=== PATIENT | male | born 1970 | race Hispanic/Latino ===

== ENCOUNTER 2019-07-16 23:57 | Emergency (ER) | payer OTHER ==
[2019-07-17] MEDS ORDERED: SODIUM CHLORIDE 0.9% 1000ML 1,000 ML IV ONE ×2 (00:53→02:30)
[2019-07-17] MEDS ORDERED: KETOROLAC TROMETHAMINE 30MG/ML ONE (00:53)
[2019-07-17] MEDS ORDERED: ONDANSETRON HCL 4 MG/2 ML VIAL ONE (00:53)
[2019-07-17 01:19] LABS: BASOPHILS % (AUTO) 0.6 % (0.0-5.0); EOSINOPHILS % (AUTO) 1.2 % (0.0-8.0); HEMATOCRIT 43.7 % (42-54); LYMPHOCYTES % (AUTO) 34.8 % (21.0-51.0); MEAN CORPUSCULAR HEMOGLOBIN 33.3 pg (27.0-33.0); MEAN CORPUSCULAR HGB CONC 35.7 g/dL (32.0-36.0); MEAN CORPUSCULAR VOLUME 93.2 fL (79-99); MONOCYTES % (AUTO) 5.1 % (3.0-13.0); NEUTROPHILS % (AUTO) 58.3 % (40.0-77.0); PLATELET COUNT (AUTO) 256 K/uL (130-400); RED BLOOD CELL COUNT(AUTO) 4.68 MIL/uL (4.50-6.20); RED CELL DISTRIBUTION WIDTH 15.2 % (11.0-15.5); WHITE BLOOD COUNT (AUTO) 7.7 K/uL (4.8-10.8)
[2019-07-17 01:20] LABS: APPEARANCE,URINE Clear (CLEAR); BILIRUBIN,URINE Negative (NEGATIVE); COLOR,URINE Dark Yellow (YELLOW); GLUCOSE, URINE (UA) Negative (NEGATIVE); KETONES,URINE Trace mg/dL (NEGATIVE); LEUKOCYTE ESTERASE ,URINE Trace (NEGATIVE); NITRATE,URINE Negative (NEGATIVE); OCCULT BLOOD,URINE Moderate (NEGATIVE); PH,URINE 6.5 (5.0-8.0); PROTEIN,URINE Trace mg/dL (NEGATIVE)
[2019-07-17 01:32] LABS: INR 0.94 (0.85-1.15); PARTIAL THROMBOPLASTIN TIME 27.3 SEC (26.3-35.5); PROTHROMBIN TIME 9.9 SEC (9.6-11.6)
[2019-07-17 01:35] LABS: ALANINE AMINOTRANSFERASE 26 U/L (12-78); ALBUMIN 3.9 g/dL (3.5-5.0); ALCOHOL, BLOOD < 3 mg/dL (0-10); ASPARTATE AMINOTRANSFERASE 29 U/L (10-37); BILIRUBIN,TOTAL 0.8 mg/dL (0.2-1.0); CARBON DIOXIDE 26 mmol/L (21-32); CHLORIDE 104 mmol/L (101-111); CREATINE KINASE, TOTAL 60 U/L (21-232); CREATININE 1.9 mg/dL (0.5-1.5); GLOMERULAR FILTR. RATE CALC 40 mL/min (>60); GLUCOSE,RANDOM 123 mg/dL (70-105); LIPASE 174 U/L (114-286); SODIUM SERUM 142 mmol/L (136-145); TOTAL PROTEIN, SERUM 8.3 g/dL (6.0-8.3); UREA NITROGEN, BLOOD 5 mg/dL (7-18)
[2019-07-17 01:37] LABS: BACTERIA,URINE Few /HPF (None Seen); CALCIUM OXALATE CRYSTALS,UR Rare /LPF (None Seen); MUCUS,URINE Few LPF (None Seen); SQUAMOUS EPITHELIAL CELL,UR 0-2 /HPF (0-2); WBC,URINE 0-1 /HPF (0-1)
[2019-07-17 01:39] LABS: POTASSIUM 2.7 mmol/L (3.5-5.1)
[2019-07-17 01:39] LABS: AMPHET/METH SCREEN,URINE NEGATIVE (NEGATIVE); BARBITURATE SCREEN, URINE NEGATIVE (NEGATIVE); BENZODIAZEPINES SCREEN,URINE NEGATIVE (NEGATIVE); CANNABINOID SCREEN,URINE NEGATIVE (NEGATIVE); COCAINE SCREEN,URINE NEGATIVE (NEGATIVE); OPIATE SCREEN,URINE NEGATIVE (NEGATIVE); PHENCYCLIDINE SCREEN,URINE NEGATIVE (NEGATIVE)
[2019-07-17] MEDS ORDERED: POTASSIUM CHLORIDE 10MEQ/100ML 100 ML IV ONE (02:29)
[2019-07-17] MEDS ORDERED: POTASSIUM BICARB/CIT AC 25 MEQ TABLET.EFF ONE (02:30)
== END 2019-07-17 04:36 | disposition home or self-care (01) ==
LOC: EDH 23:57
DX: E87.6 Hypokalemia (principal); E86.9 Volume depletion, unspecified; R19.7 Diarrhea, unspecified; R10.9 Unspecified abdominal pain; R11.2 Nausea with vomiting, unspecified; F41.9 Anxiety disorder, unspecified; E11.9 Type 2 diabetes mellitus without complications; E78.00 Pure hypercholesterolemia, unspecified; F32.9 Major depressive disorder, single episode, unspecified
CPT/HCPCS: 36415; 74176; 80053; 80305; 81001; 82550; 83605; 83690; 84484; 85025; 85610; 85730; 96361; 96365; 96366; 96375 ×2; 99285; G0480; J1885; J2405; J7030 ×2

== ENCOUNTER 2019-07-25 13:33 | Inpatient (IN) | payer OTHER ==
[~2019-07-25] VITALS: Ht 180.3 cm; Wt 77.6 kg
[2019-07-25] MEDS ORDERED: METOCLOPRAMIDE 10 MG/2 ML VIAL ONE (13:57)
[2019-07-25] MEDS ORDERED: SODIUM CHLORIDE 0.9% 1000ML 1,000 ML IV ONE ×3 (13:58→17:52)
[2019-07-25 14:08] LABS: BASOPHILS % (AUTO) 0.5 % (0.0-5.0); EOSINOPHILS % (AUTO) 0.8 % (0.0-8.0); HEMATOCRIT 44.4 % (42-54); LYMPHOCYTES % (AUTO) 27.3 % (21.0-51.0); MEAN CORPUSCULAR HEMOGLOBIN 33.5 pg (27.0-33.0); MEAN CORPUSCULAR HGB CONC 35.2 g/dL (32.0-36.0); MEAN CORPUSCULAR VOLUME 95.1 fL (79-99); NEUTROPHILS % (AUTO) 66.4 % (40.0-77.0); NUCLEATED RED BLOOD CELLS 0.1 % (0.0-0.19); PLATELET COUNT (AUTO) 261 K/uL (130-400); RED BLOOD CELL COUNT(AUTO) 4.67 MIL/uL (4.50-6.20); RED CELL DISTRIBUTION WIDTH 15.4 % (11.0-15.5); WHITE BLOOD COUNT (AUTO) 8.5 K/uL (4.8-10.8)
[2019-07-25 14:17] LABS: INR 0.95 (0.85-1.15); PARTIAL THROMBOPLASTIN TIME 25.9 SEC (26.3-35.5)
[2019-07-25 14:21] LABS: ALBUMIN 3.7 g/dL (3.5-5.0); BILIRUBIN,TOTAL 1.5 mg/dL (0.2-1.0); TOTAL PROTEIN, SERUM 7.7 g/dL (6.0-8.3)
[2019-07-25 14:34] LABS: CREATININE 1.7 mg/dL (0.5-1.5); POTASSIUM 3.6 mmol/L (3.5-5.1)
[2019-07-25] MEDS ORDERED: MORPHINE SULFATE 4 MG/1ML SYG ONE (14:57)
[2019-07-25] MEDS: SODIUM CHLORIDE 0.9% 1000ML 1,000 ML IV SCH (17:20)
[2019-07-25] MEDS ORDERED: DiphenhydrAMINE HCL 50 MG/ML VIAL IV PRN (17:30)
[2019-07-25] MEDS ORDERED: DIPHENHYDRAMINE HCL 25 MG CAPSULE PO PRN (17:30)
[2019-07-25] MEDS ORDERED: ACETAMINOPHEN 325 MG TAB PO PRN ×2 (17:30)
[2019-07-25] MEDS ORDERED: LACTULOSE 20 GM/30 ML UDCUP PO PRN (17:30)
[2019-07-25] MEDS ORDERED: MAG HYDROX/AL HYDROX/SIMETH ES 30 ML SUSP UDCUP PO PRN (17:30)
[2019-07-25] MEDS ORDERED: GUAIFENESIN-DM 200/20 MG 10 ML PO PRN (17:30)
[2019-07-25] MEDS ORDERED: HYDRALAZINE HCL 20 MG/ML VIAL IV PRN (17:30)
[2019-07-25] MEDS ORDERED: NITROGLYCERIN 0.4 MG SL TAB SL PRN (17:30)
[2019-07-25 18:39] LABS: APPEARANCE,URINE Clear (CLEAR); BILIRUBIN,URINE Small (NEGATIVE); COLOR,URINE Dark Yellow (YELLOW); GLUCOSE, URINE (UA) Negative (NEGATIVE); KETONES,URINE 40 mg/dL (NEGATIVE); LEUKOCYTE ESTERASE ,URINE Trace (NEGATIVE); NITRATE,URINE Negative (NEGATIVE); OCCULT BLOOD,URINE Nonhemolyzed Trace (NEGATIVE); PH,URINE 6.5 (5.0-8.0); PROTEIN,URINE POS 1+ mg/dL (NEGATIVE)
[2019-07-25 18:47] LABS: AMPHET/METH SCREEN,URINE NEGATIVE (NEGATIVE); BARBITURATE SCREEN, URINE NEGATIVE (NEGATIVE); BENZODIAZEPINES SCREEN,URINE NEGATIVE (NEGATIVE); CANNABINOID SCREEN,URINE NEGATIVE (NEGATIVE); COCAINE SCREEN,URINE NEGATIVE (NEGATIVE); OPIATE SCREEN,URINE POSITIVE (NEGATIVE); PHENCYCLIDINE SCREEN,URINE NEGATIVE (NEGATIVE)
[2019-07-25 19:02] LABS: BACTERIA,URINE Few /HPF (None Seen)
[2019-07-25 19:03] LABS: MUCUS,URINE Few LPF (None Seen)
[2019-07-25 21:00] VITALS: BP 163/67
--- NOTE | 2019-07-25 21:30 | NUR ---
Admission Assessment Received pt from ED per wheelchair with no family around, NS at 100cc/hr infusing well, routine admission assessment done, plan of care discuss, pt claimed has been sick for more than a week had gone [facility] was send home with instructions to keep his diet CLD, stated his mother invited him to eat at [employer], thereafter abdominal discomfort started & prior to admission stated became severe. Pt also confirm he has problem with kidney stones & in 2017 Dr. Watson did laser treatment, then he also as claimed was able to pass out stones in the pass. Re his home medication, noted one medication noted belong to her mother as claimed but per pt stated he takes it as it helps with his depression/anxiety = Escitalopram 10mg takes it daily in AM. Pt advise he can't be taking other person's medication unless prescribe by a physician. Per pt claimed since he does not have coverage, just recently applied for medicaid, his mother shares her medication with him. Pt stated he sees a physician from [facility] here in [place] but can't remember the name. Pt currently denies discomfort. Pt also stated someone from this hospital has called him yesterday to assist him with financial coverage for his ED visit. I made him aware that might be [facility] & they won't be her this weekend for sure on Saturday a business services sales representative will see him. Pt reminded only on clear liquid diet for now.
[2019-07-25] MEDS ORDERED: METF500S7 PO (22:43)
[2019-07-25] MEDS ORDERED: ESCI10TA54 PO (22:43)
[2019-07-25] MEDS: FAMOTIDINE 20MG TAB 20 MG TAB PO SCH (22:50)
[2019-07-25 23:54] VITALS: BP 143/85
[2019-07-26 03:30] VITALS: BP 125/71
[2019-07-26 05:24] LABS: BASOPHILS % (AUTO) 0.5 % (0.0-5.0); EOSINOPHILS % (AUTO) 3.2 % (0.0-8.0); HEMATOCRIT 35.9 % (42-54); MEAN CORPUSCULAR HEMOGLOBIN 33.3 pg (27.0-33.0); MEAN CORPUSCULAR VOLUME 92.4 fL (79-99); MONOCYTES % (AUTO) 6.9 % (3.0-13.0); NEUTROPHILS % (AUTO) 53.4 % (40.0-77.0); NUCLEATED RED BLOOD CELLS 0.1 % (0.0-0.19); PLATELET COUNT (AUTO) 188 K/uL (130-400); RED BLOOD CELL COUNT(AUTO) 3.89 MIL/uL (4.50-6.20); RED CELL DISTRIBUTION WIDTH 15.2 % (11.0-15.5); WHITE BLOOD COUNT (AUTO) 5.5 K/uL (4.8-10.8)
[2019-07-26 05:36] LABS: CREATININE 1.3 mg/dL (0.5-1.5)
[2019-07-26 05:55] LABS: POTASSIUM 2.8 mmol/L (3.5-5.1)
[2019-07-26] MEDS: SODIUM CHLORIDE 0.9% 1000ML 1,000 ML IV SCH ×3 (06:05→22:55)
[2019-07-26] MEDS ORDERED: GLUCAGON 1MG KIT 1 MG ML IM PRN (06:15)
[2019-07-26] MEDS ORDERED: DEXTROSE 50%-WATER 50 ML DISP.SYRIN IV PRN (06:15)
[2019-07-26] MEDS: INSULIN HUMULIN R 100 UNIT/ML 3ML SQ SCH ×4 (06:26→21:00)
[2019-07-26] MEDS: LIDOCAINE HCL-MPF 1% 2ML VIAL IV PRN ×2 (06:27→23:49)
[2019-07-26] MEDS: POTASSIUM CHLORIDE 20MEQ/100ML 100 ML IV PRN ×2 (06:27→23:49)
[2019-07-26] MEDS: POTASSIUM CHLORIDE 20 MEQ ERTAB PO PRN ×4 (06:28→21:30)
[2019-07-26 08:00] VITALS: BP 136/84
[2019-07-26 11:00] VITALS: BP 135/80
[2019-07-26] MEDS: FAMOTIDINE 20MG TAB 20 MG TAB PO SCH ×2 (11:15→20:41)
[2019-07-26] MEDS: ENOXAPARIN SODIUM 30 MG/0.3 ML SQ SCH (11:17)
[2019-07-26 16:00] VITALS: BP 141/89
--- NOTE | 2019-07-26 17:14 | NUR ---
cm note met with patient and states resides at home alone, independent with adls/ambulation/self care. no dme. no provider. shaq is back home. has applied with [facility] for possible [facility] coverage. Addendum: 07/26/19 at 1715 by JAH CHADWICK CM Amended: Links added.
[2019-07-26 19:30] VITALS: BP 141/82
[2019-07-26] MEDS: ONDANSETRON HCL 4 MG/2 ML VIAL IV PRN (20:41)
--- NOTE | 2019-07-26 20:41 | NUR ---
MEDS SHIFT ASSESSMENT DONE, PLEASE REFER TO CHART. PT COMPLAINTS OF NAUSEA, ZOFRAN IV GIVEN. POTASSIUM RE-CHECK=3.4, STARTED PO COVERAGE. DUE MEDS ADMINISTERED, TOLERATED WELL. KEPT RESTED AND COMFORTABLE. WILL RE-ASSESS PT. Addendum: 07/26/19 at 2333 by LEONIDAS CRAIG RN RN Amended: Links added.
--- NOTE | 2019-07-26 22:00 | NUR ---
N/V PT VERBALIZES OF VOMITING PO POTASSIUM GIVEN EARLIER. REFUSING TO TAKE SECOND PO DOSE.
[2019-07-26 23:39] VITALS: BP 139/83
[2019-07-27] MEDS: SODIUM CHLORIDE 0.9% 1000ML 1,000 ML IV SCH ×3 (01:53→13:44)
--- NOTE | 2019-07-27 02:00 | NUR ---
ROUNDS PT STILL AWAKE, WATCHING TV. NO DISTRESS NOTED. NO CONCERNS VERBALIZED. KEPT RESTED AND COMFORTABLE IN BED. CALL LIGHT WITHIN REACH. WILL MONITOR PT.
[2019-07-27 04:00] VITALS: BP 130/75
[2019-07-27 05:56] LABS: BASOPHILS % (AUTO) 0.4 % (0.0-5.0); EOSINOPHILS % (AUTO) 4.9 % (0.0-8.0); HEMATOCRIT 37.7 % (42-54); LYMPHOCYTES % (AUTO) 41.1 % (21.0-51.0); MEAN CORPUSCULAR HEMOGLOBIN 33.8 pg (27.0-33.0); MEAN CORPUSCULAR HGB CONC 36.6 g/dL (32.0-36.0); MEAN CORPUSCULAR VOLUME 92.4 fL (79-99); MONOCYTES % (AUTO) 8.1 % (3.0-13.0); NEUTROPHILS % (AUTO) 45.5 % (40.0-77.0); NUCLEATED RED BLOOD CELLS 0.1 % (0.0-0.19); PLATELET COUNT (AUTO) 162 K/uL (130-400); RED BLOOD CELL COUNT(AUTO) 4.08 MIL/uL (4.50-6.20); RED CELL DISTRIBUTION WIDTH 15.6 % (11.0-15.5); WHITE BLOOD COUNT (AUTO) 3.9 K/uL (4.8-10.8)
[2019-07-27 06:08] LABS: CREATININE 1.1 mg/dL (0.5-1.5); POTASSIUM 3.5 mmol/L (3.5-5.1)
[2019-07-27] MEDS: POTASSIUM CHLORIDE 10% ELIXIR 20 MEQ/15 ML UDCUP PO PRN ×2 (06:35→13:45)
--- NOTE | 2019-07-27 06:35 | NUR ---
MEDS PT'S REPEAT KCL=3.5, STARTED PO COVERAGE WITH KCL ELIXER GIVEN WITH [employer]UICE. INSULIN COVERAGE ADMINISTERED WELL. PT TOLERATED MEDS WELL. ENDORSING TO AM SHIFT FOR MORE CARE AND MANAGEMENT.
[2019-07-27] MEDS: INSULIN HUMULIN R 100 UNIT/ML 3ML SQ SCH ×4 (06:40→21:19)
[2019-07-27 08:00] VITALS: BP 133/96
[2019-07-27] MEDS: ENOXAPARIN SODIUM 30 MG/0.3 ML SQ SCH (08:12)
[2019-07-27] MEDS: FAMOTIDINE 20MG TAB 20 MG TAB PO SCH ×2 (08:22→21:16)
[2019-07-27 12:00] VITALS: BP 144/96
[2019-07-27] MEDS: ONDANSETRON HCL 4 MG/2 ML VIAL IV PRN (13:55)
[2019-07-27 16:00] VITALS: BP 141/91
[2019-07-27 19:15] VITALS: BP 135/91
--- NOTE | 2019-07-27 21:15 | NUR ---
MEDS SHIFT ASSESSMENT DONE, PLEASE REFER TO CHART. DUE MEDS ADMINISTERED, TOLERATED WELL. KEPT RESTED AND COMFORTABLE. CALL LIGHT WITHIN REACH. INSTRUCTED TO BE NPO FOR AND SONO AND HIDA IN AM. PT VERBALIZES UNDERSTANDING.
[2019-07-27 23:35] VITALS: BP 132/89
[2019-07-28] MEDS: SODIUM CHLORIDE 0.9% 1000ML 1,000 ML IV SCH ×3 (00:33→20:33)
--- NOTE | 2019-07-28 00:33 | NUR ---
IVF PT RESTING WELL IN BED. NO CONCERNS VERBALIZED. NO DISTRESS NOTED. NEW IVF BAG HUNG. KEPT RESTED AND COMFORTABLE. WILL MONITOR PT.
--- NOTE | 2019-07-28 01:38 | NUR ---
MEDS SHIFT ASSESSMENT DONE, PLEASE REFER TO CHART. DUE MEDS ADMINISTERED, TOLERATED WELL. NO DISTRESS NOTED. NO COMPLAINTS VERBALIZED. KEPT RESTED AND COMFORTABLE. CALL LIGHT WITHIN REACH. Addendum: 07/28/19 at 0139 by LEONIDAS CRAIG RN RN Amended: Links added. Addendum: 07/28/19 at 0140 by LEONIDAS CRAIG RN RN TIME ENTRY ERROR
[2019-07-28 03:33] VITALS: BP 132/85
[2019-07-28 04:52] LABS: HEMATOCRIT 38.4 % (42-54); MEAN CORPUSCULAR HEMOGLOBIN 33.3 pg (27.0-33.0); MEAN CORPUSCULAR HGB CONC 35.9 g/dL (32.0-36.0); MEAN CORPUSCULAR VOLUME 92.8 fL (79-99); NUCLEATED RED BLOOD CELLS 0.1 % (0.0-0.19); PLATELET COUNT (AUTO) 155 K/uL (130-400); RED BLOOD CELL COUNT(AUTO) 4.14 MIL/uL (4.50-6.20); RED CELL DISTRIBUTION WIDTH 15.2 % (11.0-15.5)
[2019-07-28 05:00] LABS: CREATININE 0.9 mg/dL (0.5-1.5); POTASSIUM 3.5 mmol/L (3.5-5.1)
[2019-07-28] MEDS: POTASSIUM CHLORIDE 20MEQ/100ML 100 ML IV PRN (05:26)
[2019-07-28] MEDS: LIDOCAINE HCL-MPF 1% 2ML VIAL IV PRN (05:26)
--- NOTE | 2019-07-28 05:26 | NUR ---
KCL PT VERBALIZES THAT HE IS HUNGRY AND WANTED TO EAT. EXPLAINED THAT IF HE WILL EAT AT THIS TIME, HIDA SCAN WILL NOT BE DONE. PT WAS ABOUT TO SIGN THE REFUSAL FORM BUT CHANGED HIS MIND. IV POTASSIUM INFUSION STARTED FOR KCL=3.5. KEPT RESTED IN BED. KEPT NPO. FOR MORE CARE AND MANAGEMENT.
[2019-07-28] MEDS: INSULIN HUMULIN R 100 UNIT/ML 3ML SQ SCH ×4 (06:26→20:33)
[2019-07-28 07:37] LABS: BAND NEUTROPHILS % (MANUAL) 1 % (0-2); EOSINOPHILS % (MANUAL) 3 % (1-6); LYMPHOCYTES % (MANUAL) 31 % (22-44); MAN.DIFF COMMENT-IMPRESSION MANUAL DIFFERENTIAL; MONOCYTES % (MANUAL) 10 % (2-9); PLATELET MORPHOLOGY COMMENT ADEQUATE; SEGMENTED NEUTROPHILS % 55 % (40-70)
[2019-07-28 07:55] VITALS: BP 143/101
[2019-07-28] MEDS: FAMOTIDINE 20MG TAB 20 MG TAB PO SCH ×2 (08:31→20:24)
[2019-07-28] MEDS: ENOXAPARIN SODIUM 30 MG/0.3 ML SQ SCH (09:00)
[2019-07-28 12:00] VITALS: BP 131/82
[2019-07-28 13:53] LABS: BASOPHILS % (AUTO) 0.9 % (0.0-5.0); EOSINOPHILS % (AUTO) 4.5 % (0.0-8.0); HEMATOCRIT 40.5 % (42-54); LYMPHOCYTES % (AUTO) 23.7 % (21.0-51.0); MEAN CORPUSCULAR HEMOGLOBIN 33.3 pg (27.0-33.0); MEAN CORPUSCULAR HGB CONC 35.7 g/dL (32.0-36.0); MEAN CORPUSCULAR VOLUME 93.4 fL (79-99); MONOCYTES % (AUTO) 8.3 % (3.0-13.0); NEUTROPHILS % (AUTO) 62.6 % (40.0-77.0); PLATELET COUNT (AUTO) 179 K/uL (130-400); RED BLOOD CELL COUNT(AUTO) 4.34 MIL/uL (4.50-6.20); RED CELL DISTRIBUTION WIDTH 15.5 % (11.0-15.5); WHITE BLOOD COUNT (AUTO) 4.1 K/uL (4.8-10.8)
[2019-07-28 16:00] VITALS: BP 114/85
[2019-07-28 19:51] VITALS: BP 146/100
[2019-07-28] MEDS ORDERED: HYDROMORPHONE 1 MG/1 ML AMP IVP PRN (22:30)
[2019-07-28] MEDS: ONDANSETRON HCL 4 MG/2 ML VIAL IV PRN (22:33)
[2019-07-28] MEDS ORDERED: PHARMACY COMMUNICATION MISC SCH (22:40)
[2019-07-28 23:19] VITALS: BP 138/102
[2019-07-29] MEDS: SODIUM CHLORIDE 0.9% 1000ML 1,000 ML IV SCH ×2 (00:24→08:24)
[2019-07-29 03:49] VITALS: BP 123/92
[2019-07-29 05:33] LABS: POTASSIUM 3.7 mmol/L (3.5-5.1)
[2019-07-29] MEDS: INSULIN HUMULIN R 100 UNIT/ML 3ML SQ SCH ×2 (06:22→11:30)
[2019-07-29 07:27] VITALS: BP 131/92
[2019-07-29] MEDS ORDERED: PHARMACY COMMUNICATION MISC SCH (07:30)
[2019-07-29 08:12] LABS: HEPATITIS A ANTIBODY IGM Negative (Negative); HEPATITIS B CORE IGM Negative (Negative); HEPATITIS Bs ANTIGEN SCREEN P Negative (Negative)
[2019-07-29] MEDS: FAMOTIDINE 20MG TAB 20 MG TAB PO SCH (08:14)
[2019-07-29] MEDS: ENOXAPARIN SODIUM 30 MG/0.3 ML SQ SCH (08:16)
[2019-07-29 11:24] VITALS: BP 122/78
[2019-07-29] MEDS ORDERED: ONDA4TAB4 PO (11:30)
[2019-07-29] MEDS ORDERED: IBUP-2077 PO (11:30)
--- NOTE | 2019-07-29 15:00 | NUR ---
CONVERSATION WITH PATIENT PATIENT STATES DOES NOT WANT TO GO HOME. CM THERE TO GIVE MEDICATION COUPONS. STATES THAT IF ANYTHING HAPPENED TO HIM HE WILL LORRI. CHART REVIEWED, NOTED IMIAGING STUDIES, ADVISED PT THAT HIS CHRONIC PANCREATITIS IS NOT DANGEROUS, JUST PAINFUL. ASKED IF ANYONE HAD TOLD HIM HE HAD LIVER PROBLEMS, HE STATES YES ADVISED HIM THAT IF HE LOOKS AFTER HIMSELF , EATS WELL, AND DOES NOT DRINK, , HE IS NOT 'IN DANGER' AT THE PRESENT MOMENT- PT HAS MANY MANY TATTOOS, ADMITS TO INCARCERATION- ADVISED HIM THERE ARE MANY ILLNESS THAT CAN OCCUR WHEN A PERSON PUTS A NEEDLES UNDER THE SKIN. ITS A RISKY THING TO DO, BUT WE DO NOT HAVE EVIDENCE AT THIS TIME THAT YOU ARE IN DANGER FROM THAT PAST BEHAVIOR. PT VISIBLY CALMER, STATES WANTS TO GO HOME, EVERYTHING WILL BE FINE, JUST NEEDS A DIET FOR THE CHRONIC PANCREATITIS. Addendum: 07/29/19 at 1820 by DANIEL DARNELL RN Amended: Links added.
--- NOTE | 2019-07-31 08:00 | NUR ---
Pt awake, alert, oriented x3. Ambulates without difficulty. Has brown discoloration to bilateral lower legs.
--- NOTE | 2019-07-31 11:30 | NUR ---
internet sales manager Michael informed of case-management evaluation for low cost medication programs
== END 2019-07-29 15:35 | disposition home or self-care (01) | DRG 439 ==
LOC: EDH 13:33 → EDHIP 13:34 → 4BH 20:09
PROVIDERS: ADMIT Family Medicine; ATTEND Family Medicine
DX: K85.90 Acute pancreatitis without necrosis or infection, unspecified (principal); N17.9 Acute kidney failure, unspecified; B19.20 Unspecified viral hepatitis C without hepatic coma; N20.0 Calculus of kidney; K86.1 Other chronic pancreatitis; F32.9 Major depressive disorder, single episode, unspecified; F41.9 Anxiety disorder, unspecified; E11.9 Type 2 diabetes mellitus without complications; E78.00 Pure hypercholesterolemia, unspecified; E86.0 Dehydration; E87.6 Hypokalemia; F17.210 Nicotine dependence, cigarettes, uncomplicated; I10 Essential (primary) hypertension; K74.60 Unspecified cirrhosis of liver; K82.8 Other specified diseases of gallbladder; Z87.442 Personal history of urinary calculi; Z23 Encounter for immunization; Z88.5 Allergy status to narcotic agent
CPT/HCPCS: 36415; 74176; 76705; 76770; 78227; 80048; 80053; 80074; 80305; 81001; 82948; 83605; 83690; 84132; 85025; 85610; 85730; A9537; G0378; J1170; J1650; J1815; J2270; J2405; J2765; J3480; J3490; J7030

== ENCOUNTER 2019-08-02 22:29 | Inpatient (IN) | payer OTHER ==
[~2019-08-02] VITALS: Ht 177.8 cm; Wt 76.2 kg
[~2019-08-02 22:29] MED LIST: ESCI10TA54 PO; IBUP-2077 PO; METF500S7 PO; ONDA4TAB4 PO
[2019-08-02 23:03] LABS: BASOPHILS % (AUTO) 0.6 % (0.0-5.0); EOSINOPHILS % (AUTO) 1.7 % (0.0-8.0); HEMATOCRIT 45.2 % (42-54); LYMPHOCYTES % (AUTO) 39.4 % (21.0-51.0); MEAN CORPUSCULAR HEMOGLOBIN 33.7 pg (27.0-33.0); MEAN CORPUSCULAR VOLUME 96.2 fL (79-99); MONOCYTES % (AUTO) 6.8 % (3.0-13.0); NEUTROPHILS % (AUTO) 51.5 % (40.0-77.0); PLATELET COUNT (AUTO) 272 K/uL (130-400); RED BLOOD CELL COUNT(AUTO) 4.69 MIL/uL (4.50-6.20); RED CELL DISTRIBUTION WIDTH 15.5 % (11.0-15.5)
[2019-08-02 23:08] LABS: APPEARANCE,URINE Clear (CLEAR); BILIRUBIN,URINE Negative (NEGATIVE); COLOR,URINE Dark Yellow (YELLOW); GLUCOSE, URINE (UA) Negative (NEGATIVE); KETONES,URINE Trace mg/dL (NEGATIVE); LEUKOCYTE ESTERASE ,URINE Trace (NEGATIVE); NITRATE,URINE Negative (NEGATIVE); OCCULT BLOOD,URINE Large (NEGATIVE); PROTEIN,URINE POS 1+ mg/dL (NEGATIVE)
[2019-08-02 23:12] LABS: AMPHET/METH SCREEN,URINE NEGATIVE (NEGATIVE); BARBITURATE SCREEN, URINE NEGATIVE (NEGATIVE); BENZODIAZEPINES SCREEN,URINE NEGATIVE (NEGATIVE); CANNABINOID SCREEN,URINE NEGATIVE (NEGATIVE); COCAINE SCREEN,URINE NEGATIVE (NEGATIVE); OPIATE SCREEN,URINE NEGATIVE (NEGATIVE); PHENCYCLIDINE SCREEN,URINE NEGATIVE (NEGATIVE)
[2019-08-02 23:15] LABS: INR 0.91 (0.85-1.15); PARTIAL THROMBOPLASTIN TIME 27.6 SEC (26.3-35.5); PROTHROMBIN TIME 9.6 SEC (9.6-11.6)
[2019-08-02 23:16] LABS: CARBON DIOXIDE 22 mmol/L (21-32); CHLORIDE 105 mmol/L (101-111); CREATININE 2.1 mg/dL (0.5-1.5); GLOMERULAR FILTR. RATE CALC 36 mL/min (>60); GLUCOSE,RANDOM 155 mg/dL (70-105); POTASSIUM 3.9 mmol/L (3.5-5.1); SODIUM SERUM 142 mmol/L (136-145); UREA NITROGEN, BLOOD 9 mg/dL (7-18)
[2019-08-02 23:20] LABS: ALANINE AMINOTRANSFERASE 36 U/L (12-78); ALBUMIN 3.8 g/dL (3.5-5.0); ALCOHOL, BLOOD < 3 mg/dL (0-10); AMYLASE 63 U/L (25-115); ASPARTATE AMINOTRANSFERASE 32 U/L (10-37); BACTERIA,URINE None Seen /HPF (None Seen); BILIRUBIN,TOTAL 0.6 mg/dL (0.2-1.0); CREATINE KINASE, TOTAL 74 U/L (21-232); LIPASE 134 U/L (114-286); MUCUS,URINE Few LPF (None Seen); SQUAMOUS EPITHELIAL CELL,UR Few /HPF (0-2); TOTAL PROTEIN, SERUM 8.2 g/dL (6.0-8.3)
[2019-08-02] MEDS ORDERED: KETOROLAC TROMETHAMINE 15MG/ML ONE (23:37)
[2019-08-02] MEDS ORDERED: SODIUM CHLORIDE 0.9% 1000ML 1,000 ML IV ONE (23:37)
[2019-08-02] MEDS ORDERED: ONDANSETRON HCL 4 MG/2 ML VIAL ONE (23:37)
[2019-08-03] MEDS ORDERED: SODIUM CHLORIDE 0.9% 50 ML IV ONE (01:43)
[2019-08-03] MEDS: SODIUM CHLORIDE 0.9% 1000ML 1,000 ML IV SCH ×2 (01:56→12:18)
[2019-08-03] MEDS ORDERED: IBUPROFEN 600 MG TABLET PO PRN (02:00)
[2019-08-03] MEDS ORDERED: ONDANSETRON HCL 4 MG/2 ML VIAL IV PRN (02:00)
[2019-08-03] MEDS ORDERED: SODIUM CHLORIDE 0.9% 1000ML 1,000 ML IV ONE (02:44)
[2019-08-03] MEDS ORDERED: CEFTRIAXONE SODIUM 1 GM ONE (02:46)
[2019-08-03 03:10] VITALS: BP_SYST 149; BP_SYST 157; BP_DIAS 67; BP_DIAS 87
--- NOTE | 2019-08-03 03:15 | NUR ---
ADMIT PT ADMITTED TO ROOM 405, AAOX3. PT STILL CLAIMS OF GENERALIZED ABDOMINAL PAINS AND LEFT FLANK PAINS. NO NAUSEA REPORTED. ADMISSION CARE DONE. ADMISSION DATA BASE COMPLETED. V/S MONITORED, STABLE. PLACED IVF OF NS FROM ER TO THE PUMP THEN REGULATED AT 100CC/HR PER ORDER. PLACED PT ON CLEAR LIQUID DIET, TOLERATED WELL. ORIENTED TO ROOM AND UNIT. IN FOR MORE CARE AND MANAGEMENT. Addendum: 08/03/19 at 0350 by LEONIDAS CRAIG RN RN Amended: Links added.
[2019-08-03] MEDS ORDERED: IBUPROFEN 600 MG TABLET ONE (04:02)
--- NOTE | 2019-08-03 05:35 | NUR ---
ROUNDS PT RESTING WELL, FAIRLY ASLEEP WITH RESPIRATIONS EVEN AND UNLABORED. NO NOTED DISTRESS. KEPT UNDISTURBED FOR NOW. CALL LIGHT WITHIN REACH. FOR MORE CARE.
[2019-08-03] MEDS ORDERED: ACETAMINOPHEN 325 MG TAB PO PRN (07:15)
[2019-08-03 07:58] VITALS: BP 136/82
[2019-08-03] MEDS: FAMOTIDINE/PF 20 MG/2 ML VIAL IV SCH (09:26)
[2019-08-03] MEDS: CITALOPRAM 20 MG TABLET PO SCH (09:26)
[2019-08-03] MEDS: ENOXAPARIN SODIUM 40 MG/0.4 ML SYRINGE SQ SCH (09:27)
[2019-08-03 11:30] VITALS: BP 139/90
--- NOTE | 2019-08-03 13:00 | NUR ---
INITIAL MET W PT KNOWN TO THIS CM FORM LAST ADMIT, LIVES ALONE, PAST INCARCERATIONS, UNEMPLOYED, KIDNEY STONES, CHRONIC PANCREATITIS,LAST ADMIT + FOR HEP C, UNSURE IF THIS WAS DISCUSSED W PATIENT; BACK AGIAN WITH KIDNEY STONE- AND HYDRONEPHROSIS,UIT WAS DX ON LAST ADMIT, DID NOT WELDER SHIELDED METAL ARC HIS MEIDCATION WILL FOLLOW. ASKE FOR DIET CONSULT FOR CHRONIC PANCREATITIS Addendum: 08/03/19 at 1715 by DANIEL DARNELL RN CM Amended: Links added.
--- NOTE | 2019-08-03 13:21 | NUR ---
CONVERSATION WITH RE: COMPLIANCE LAST CHART/NOTES REVIEWED CONVERSATION WITH PATIENT PT SENT HOME WITH ABX RX FOR UTI. STATES DID NOT FILL. REMINDED PT THAT WE SENT HIM HOME WITH A DIET FOR THE CHONRIC PANCREATITIS. STATES DID NOT FOLLOW PT WITH FLAT AFFECT, STATES IS DEPRESSED. PT WITH HEP CON LAST ADMIT, NOT SURE IF MD EXPLAINED THT TO HIM. WILL DISCUSS WITH THIS ADMITTING PHYSICIAN
[2019-08-03 16:00] VITALS: BP 142/91
[2019-08-03] MEDS ORDERED: TAMSULOSIN HCL 0.4 MG CAP.ER.24H PO SCH (18:00)
[2019-08-03 20:00] VITALS: BP 126/76
[2019-08-04] VITALS: BP 128/76
[2019-08-04] MEDS: SODIUM CHLORIDE 0.9% 1000ML 1,000 ML IV SCH ×2 (01:55→09:56)
[2019-08-04] MEDS ORDERED: CEFTRIAXONE SODIUM 1 GM IVP SCH (02:00)
[2019-08-04 04:00] VITALS: BP 142/87
[2019-08-04 04:03] LABS: EOSINOPHILS % (AUTO) 2.9 % (0.0-8.0); HEMATOCRIT 36.5 % (42-54); LYMPHOCYTES % (AUTO) 49.1 % (21.0-51.0); MEAN CORPUSCULAR HGB CONC 35.8 g/dL (32.0-36.0); MONOCYTES % (AUTO) 8.3 % (3.0-13.0); NEUTROPHILS % (AUTO) 38.7 % (40.0-77.0); NUCLEATED RED BLOOD CELLS 0.1 % (0.0-0.19); PLATELET COUNT (AUTO) 151 K/uL (130-400); RED BLOOD CELL COUNT(AUTO) 3.84 MIL/uL (4.50-6.20); RED CELL DISTRIBUTION WIDTH 15.3 % (11.0-15.5); WHITE BLOOD COUNT (AUTO) 4.4 K/uL (4.8-10.8)
[2019-08-04 04:13] LABS: CREATININE 1.5 mg/dL (0.5-1.5); POTASSIUM 4.2 mmol/L (3.5-5.1)
[2019-08-04 08:00] VITALS: BP 141/97
[2019-08-04] MEDS: CITALOPRAM 20 MG TABLET PO SCH (08:54)
[2019-08-04] MEDS: FAMOTIDINE/PF 20 MG/2 ML VIAL IV SCH (08:54)
[2019-08-04] MEDS: ENOXAPARIN SODIUM 40 MG/0.4 ML SYRINGE SQ SCH (08:58)
[2019-08-04] MEDS ORDERED: TAMSULOSIN HCL 0.4 MG CAP.ER.24H PO SCH (09:00)
--- NOTE | 2019-08-04 11:08 | NUR ---
CM Note: Pt given good Rx coupon for Flomax CM met with pt given Good Rx coupon for Flomax 0.4mg PO dailys x 30 days w/ [facility]17[facility] and [facility] $18.10. Given direction to [facility] as requested by pt. Primary nurse aware. CM to cont to follow up.
[2019-08-04 11:14] VITALS: BP 145/87
[2019-08-04 16:07] VITALS: BP 134/88
[2019-08-04] MEDS ORDERED: TAMS-1 PO (16:11)
--- NOTE | 2019-08-04 16:50 | NUR ---
DISCHARGE INSTRUCTED GIVEN TO PATIENT AND PATIENT VERBALIZED UNDERSTANDING, FOLLOW-UP APPOINTMENT MADE WITH DR TAPIA AND INFORMATION GIVEN TO PATIENT . IV REMOVED WITH CATHETER INTACT, NO QUESTIONS OR CONCERNS AT THIS TIME. PATIENT WALK TO [employer] AND LEFT WITH FAMILY FOR HOME
--- NOTE | 2019-08-04 16:51 | NUR ---
DIET EDUCATION PT IS BILINGUAL. KANDACE PROVIDED PANCREATITIS DIET EDUCATION REINFORCEMENT. KANDACE REVIEWED REFERENCE MATERIALS AND HANDOUTS WITH PT. PT WITH MULTIPLE QUESTIONS. RD ANSWERED ALL OF PT QUESTIONS. PT VERBALIZED UNDERSTANDING. KANDACE ENCOURAGED PT TO NOTIFY ADDITIONAL QUESTIONS OR CONCERNS ARISE. Addendum: 08/04/19 at [address] Amended: Links added.
[2019-08-04] MEDS ORDERED: FAMOTIDINE 20MG TAB 20 MG TAB PO SCH (21:00)
== END 2019-08-04 16:50 | disposition home or self-care (01) | DRG 690 ==
LOC: EDH 22:29 → OBSVTOIN 22:30 → EDHIP 22:30 → 4BH 08-03 02:20 → 4CH 08-03 08:06 → 4DH 08-03 08:38
PROVIDERS: ADMIT Internal Medicine; ATTEND Internal Medicine
DX: N13.6 Pyonephrosis (principal); I10 Essential (primary) hypertension; E11.9 Type 2 diabetes mellitus without complications; E78.00 Pure hypercholesterolemia, unspecified; E78.5 Hyperlipidemia, unspecified; F17.210 Nicotine dependence, cigarettes, uncomplicated; K57.90 Diverticulosis of intestine, part unspecified, without perforation or abscess without bleeding; K74.60 Unspecified cirrhosis of liver; Z82.49 Family history of ischemic heart disease and other diseases of the circulatory system; Z83.3 Family history of diabetes mellitus; Z87.442 Personal history of urinary calculi; Z91.19 Patient's noncompliance with other medical treatment and regimen; Z88.5 Allergy status to narcotic agent
CPT/HCPCS: 36415; 74018; 74176; 80048; 80053; 80305; 81001; 82150; 82550; 82948; 83690; 84484; 85025; 85610; 85730; 87088; 93005; G0378; G0480; J0696; J1650; J1885; J2405; J3490; J7030

== ENCOUNTER 2019-08-07 07:03 | Emergency (ER) | payer SELFPAY ==
[~2019-08-07 07:03] MED LIST changes: +TAMS-1 PO
[2019-08-07] MEDS ORDERED: SODIUM CHLORIDE 0.9% 1000ML 1,000 ML IV ONE ×2 (07:38→08:44)
[2019-08-07] MEDS ORDERED: ONDANSETRON HCL 4 MG/2 ML VIAL ONE (07:38)
[2019-08-07 07:57] LABS: BASOPHILS % (AUTO) 0.5 % (0.0-5.0); EOSINOPHILS % (AUTO) 2.5 % (0.0-8.0); HEMATOCRIT 46.7 % (42-54); LYMPHOCYTES % (AUTO) 25.4 % (21.0-51.0); MEAN CORPUSCULAR HEMOGLOBIN 33.1 pg (27.0-33.0); MEAN CORPUSCULAR HGB CONC 34.8 g/dL (32.0-36.0); MEAN CORPUSCULAR VOLUME 95.1 fL (79-99); MONOCYTES % (AUTO) 6.5 % (3.0-13.0); NEUTROPHILS % (AUTO) 65.1 % (40.0-77.0); NUCLEATED RED BLOOD CELLS 0.1 % (0.0-0.19); PLATELET COUNT (AUTO) 271 K/uL (130-400); RED BLOOD CELL COUNT(AUTO) 4.92 MIL/uL (4.50-6.20); RED CELL DISTRIBUTION WIDTH 15.4 % (11.0-15.5); WHITE BLOOD COUNT (AUTO) 9.7 K/uL (4.8-10.8)
[2019-08-07 08:18] LABS: POTASSIUM 3.5 mmol/L (3.5-5.1)
[2019-08-07 08:19] LABS: INR 0.92 (0.85-1.15); PARTIAL THROMBOPLASTIN TIME 25.7 SEC (26.3-35.5); PROTHROMBIN TIME 9.5 SEC (9.6-11.6)
[2019-08-07 08:22] LABS: ALBUMIN 3.8 g/dL (3.5-5.0); BILIRUBIN,TOTAL 0.8 mg/dL (0.2-1.0); TOTAL PROTEIN, SERUM 8.2 g/dL (6.0-8.3)
== END 2019-08-07 09:36 | disposition home or self-care (01) ==
LOC: EDH 07:03
DX: E86.0 Dehydration (principal); E11.65 Type 2 diabetes mellitus with hyperglycemia; N28.9 Disorder of kidney and ureter, unspecified; R11.2 Nausea with vomiting, unspecified; F41.9 Anxiety disorder, unspecified; F32.9 Major depressive disorder, single episode, unspecified; E78.00 Pure hypercholesterolemia, unspecified; I10 Essential (primary) hypertension; K74.60 Unspecified cirrhosis of liver; Z87.442 Personal history of urinary calculi; Z91.14 Patient's other noncompliance with medication regimen; Z88.5 Allergy status to narcotic agent
CPT/HCPCS: 36415; 80053; 82010; 82150; 82550; 83690; 84484; 85025; 85610; 85730; 93005; 96361; 96374; 99285; J2405; J7030 ×2

== ENCOUNTER 2019-08-09 00:22 | Emergency (ER) | payer SELFPAY ==
[2019-08-09 00:57] LABS: BASOPHILS % (AUTO) 0.7 % (0.0-5.0); EOSINOPHILS % (AUTO) 2.9 % (0.0-8.0); HEMATOCRIT 43.1 % (42-54); LYMPHOCYTES % (AUTO) 40.6 % (21.0-51.0); MEAN CORPUSCULAR HEMOGLOBIN 33.7 pg (27.0-33.0); MEAN CORPUSCULAR HGB CONC 35.6 g/dL (32.0-36.0); MEAN CORPUSCULAR VOLUME 94.7 fL (79-99); MONOCYTES % (AUTO) 5.9 % (3.0-13.0); NEUTROPHILS % (AUTO) 49.9 % (40.0-77.0); NUCLEATED RED BLOOD CELLS 0.1 % (0.0-0.19); PLATELET COUNT (AUTO) 254 K/uL (130-400); RED BLOOD CELL COUNT(AUTO) 4.55 MIL/uL (4.50-6.20); WHITE BLOOD COUNT (AUTO) 6.8 K/uL (4.8-10.8)
[2019-08-09 01:06] LABS: CREATININE 1.8 mg/dL (0.5-1.5); POTASSIUM 3.5 mmol/L (3.5-5.1)
[2019-08-09 01:10] LABS: ALBUMIN 3.6 g/dL (3.5-5.0); BILIRUBIN,TOTAL 0.6 mg/dL (0.2-1.0); TOTAL PROTEIN, SERUM 8.1 g/dL (6.0-8.3)
[2019-08-09] MEDS ORDERED: FAMOTIDINE/PF 20 MG/2 ML VIAL IV ONE (01:36)
[2019-08-09] MEDS ORDERED: SODIUM CHLORIDE 0.9% 1000ML 1,000 ML IV ONE (01:36)
[2019-08-09 01:39] LABS: APPEARANCE,URINE Clear (CLEAR); BILIRUBIN,URINE Negative (NEGATIVE); COLOR,URINE Yellow (YELLOW); GLUCOSE, URINE (UA) Negative (NEGATIVE); KETONES,URINE Negative (NEGATIVE); LEUKOCYTE ESTERASE ,URINE Negative (NEGATIVE); NITRATE,URINE Negative (NEGATIVE); OCCULT BLOOD,URINE Negative (NEGATIVE); PROTEIN,URINE Negative (NEGATIVE)
[2019-08-09] MEDS ORDERED: BISACODYL 5 MG TABLET.DR PO ONE (01:44)
[2019-08-09] MEDS ORDERED: BISACODYL 10 MG SUPP.RECT RC ONE (01:44)
[2019-08-09] MEDS ORDERED: ONDANSETRON HCL 4 MG/2 ML VIAL ONE (03:19)
== END 2019-08-09 05:00 | disposition home or self-care (01) ==
LOC: EDH 00:22
DX: K59.00 Constipation, unspecified (principal); R10.30 Lower abdominal pain, unspecified; R11.0 Nausea; F41.9 Anxiety disorder, unspecified; I10 Essential (primary) hypertension; E11.9 Type 2 diabetes mellitus without complications; E78.00 Pure hypercholesterolemia, unspecified; Z88.6 Allergy status to analgesic agent; Z72.0 Tobacco use
CPT/HCPCS: 36415; 76770; 80053; 81003; 83690; 85025; 93005; 96374; 96375; 99285; J2405; J3490; J7030

== ENCOUNTER 2019-08-12 02:51 | Emergency (ER) | payer SELFPAY ==
[2019-08-12 03:26] LABS: BASOPHILS % (AUTO) 0.7 % (0.0-5.0); EOSINOPHILS % (AUTO) 4.1 % (0.0-8.0); HEMATOCRIT 40.9 % (42-54); LYMPHOCYTES % (AUTO) 41.6 % (21.0-51.0); MEAN CORPUSCULAR HEMOGLOBIN 33.3 pg (27.0-33.0); MEAN CORPUSCULAR HGB CONC 35.7 g/dL (32.0-36.0); MEAN CORPUSCULAR VOLUME 93.3 fL (79-99); MONOCYTES % (AUTO) 6.2 % (3.0-13.0); NEUTROPHILS % (AUTO) 47.4 % (40.0-77.0); NUCLEATED RED BLOOD CELLS 0.1 % (0.0-0.19); PLATELET COUNT (AUTO) 211 K/uL (130-400); RED BLOOD CELL COUNT(AUTO) 4.38 MIL/uL (4.50-6.20); RED CELL DISTRIBUTION WIDTH 14.9 % (11.0-15.5); WHITE BLOOD COUNT (AUTO) 5.5 K/uL (4.8-10.8)
[2019-08-12 03:34] LABS: CARBON DIOXIDE 27 mmol/L (21-32); CHLORIDE 104 mmol/L (101-111); CREATININE 1.7 mg/dL (0.5-1.5); GLOMERULAR FILTR. RATE CALC 46 mL/min (>60); GLUCOSE,RANDOM 177 mg/dL (70-105); SODIUM SERUM 140 mmol/L (136-145); UREA NITROGEN, BLOOD 4 mg/dL (7-18)
[2019-08-12 03:34] LABS: APPEARANCE,URINE Clear (CLEAR); BILIRUBIN,URINE Negative (NEGATIVE); COLOR,URINE Yellow (YELLOW); GLUCOSE, URINE (UA) Negative (NEGATIVE); KETONES,URINE Trace mg/dL (NEGATIVE); LEUKOCYTE ESTERASE ,URINE Trace (NEGATIVE); NITRATE,URINE Negative (NEGATIVE); OCCULT BLOOD,URINE Nonhemolyzed Trace (NEGATIVE); PROTEIN,URINE Negative (NEGATIVE)
[2019-08-12 03:38] LABS: ALANINE AMINOTRANSFERASE 23 U/L (12-78); ALBUMIN 3.4 g/dL (3.5-5.0); ALCOHOL, BLOOD < 3 mg/dL (0-10); ASPARTATE AMINOTRANSFERASE 26 U/L (10-37); BILIRUBIN,TOTAL 0.5 mg/dL (0.2-1.0); TOTAL PROTEIN, SERUM 7.4 g/dL (6.0-8.3)
[2019-08-12] MEDS ORDERED: POTASSIUM BICARB/CIT AC 25 MEQ TABLET.EFF ONE (03:39)
[2019-08-12 03:42] LABS: AMPHET/METH SCREEN,URINE NEGATIVE (NEGATIVE); BARBITURATE SCREEN, URINE NEGATIVE (NEGATIVE); BENZODIAZEPINES SCREEN,URINE NEGATIVE (NEGATIVE); CANNABINOID SCREEN,URINE NEGATIVE (NEGATIVE); COCAINE SCREEN,URINE NEGATIVE (NEGATIVE); OPIATE SCREEN,URINE NEGATIVE (NEGATIVE); PHENCYCLIDINE SCREEN,URINE NEGATIVE (NEGATIVE)
[2019-08-12 03:45] LABS: WBC,URINE None Seen /HPF (0-1)
[2019-08-12 03:46] LABS: BACTERIA,URINE None Seen /HPF (None Seen)
[2019-08-12] MEDS ORDERED: KETOROLAC TROMETHAMINE 30MG/ML ONE (04:38)
== END 2019-08-12 04:48 | disposition home or self-care (01) ==
LOC: EDH 02:51
DX: N20.0 Calculus of kidney (principal); R11.2 Nausea with vomiting, unspecified; F41.9 Anxiety disorder, unspecified; F32.9 Major depressive disorder, single episode, unspecified; E11.9 Type 2 diabetes mellitus without complications; E78.00 Pure hypercholesterolemia, unspecified; I10 Essential (primary) hypertension; Z88.6 Allergy status to analgesic agent
CPT/HCPCS: 36415; 74176; 80053; 80305; 81001; 85025; 96374; 99285; G0480; J1885

== ENCOUNTER 2019-08-30 00:02 | Emergency (ER) | payer OTHER ==
[2019-08-31 00:34] LABS: APPEARANCE,URINE Clear (CLEAR); BILIRUBIN,URINE Moderate (NEGATIVE); COLOR,URINE Dark Yellow (YELLOW); GLUCOSE, URINE (UA) Negative (NEGATIVE); KETONES,URINE Negative (NEGATIVE); LEUKOCYTE ESTERASE ,URINE Trace (NEGATIVE); NITRATE,URINE Negative (NEGATIVE); OCCULT BLOOD,URINE Small (NEGATIVE); PH,URINE 5.5 (5.0-8.0); PROTEIN,URINE POS 2+ mg/dL (NEGATIVE)
[2019-08-31 00:46] LABS: EOSINOPHILS % (AUTO) 1.3 % (0.0-8.0); HEMATOCRIT 44.2 % (42-54); MEAN CORPUSCULAR HEMOGLOBIN 33.1 pg (27.0-33.0); MEAN CORPUSCULAR HGB CONC 34.6 g/dL (32.0-36.0); MEAN CORPUSCULAR VOLUME 95.8 fL (79-99); NEUTROPHILS % (AUTO) 67.7 % (40.0-77.0); NUCLEATED RED BLOOD CELLS 0.1 % (0.0-0.19); PLATELET COUNT (AUTO) 383 K/uL (130-400); RED BLOOD CELL COUNT(AUTO) 4.61 MIL/uL (4.50-6.20); RED CELL DISTRIBUTION WIDTH 14.7 % (11.0-15.5)
[2019-08-31 00:46] LABS: RBC,URINE 0-1 /HPF (0-1)
[2019-08-31 00:47] LABS: BACTERIA,URINE Few /HPF (None Seen); MUCUS,URINE Moderate LPF (None Seen); SQUAMOUS EPITHELIAL CELL,UR Moderate /HPF (0-2)
[2019-08-31 00:54] LABS: CARBON DIOXIDE 19 mmol/L (21-32); CHLORIDE 104 mmol/L (101-111); CREATININE 1.9 mg/dL (0.5-1.5); GLOMERULAR FILTR. RATE CALC 40 mL/min (>60); GLUCOSE,RANDOM 185 mg/dL (70-105); INR 0.91 (0.85-1.15); PARTIAL THROMBOPLASTIN TIME 28.7 SEC (26.3-35.5); POTASSIUM 3.8 mmol/L (3.5-5.1); PROTHROMBIN TIME 9.6 SEC (9.6-11.6); SODIUM SERUM 140 mmol/L (136-145); UREA NITROGEN, BLOOD 15 mg/dL (7-18)
[2019-08-31 00:57] LABS: ALANINE AMINOTRANSFERASE 37 U/L (12-78); ALBUMIN 3.8 g/dL (3.5-5.0); ALCOHOL, BLOOD < 3 mg/dL (0-10); AMMONIA 43 umol/L (11-32); AMYLASE 57 U/L (25-115); ASPARTATE AMINOTRANSFERASE 43 U/L (10-37); BILIRUBIN,TOTAL 1.2 mg/dL (0.2-1.0); CREATINE KINASE, TOTAL 105 U/L (21-232); LIPASE 141 U/L (114-286); SALICYLATE 4.5 mg/dL (2.8-20.0); TOTAL PROTEIN, SERUM 8.3 g/dL (6.0-8.3)
[2019-08-31 01:05] LABS: ACETAMINOPHEN < 1 mcg/mL (10-29)
[2019-08-31 01:10] LABS: AMPHET/METH SCREEN,URINE NEGATIVE (NEGATIVE); BARBITURATE SCREEN, URINE NEGATIVE (NEGATIVE); BENZODIAZEPINES SCREEN,URINE NEGATIVE (NEGATIVE); CANNABINOID SCREEN,URINE NEGATIVE (NEGATIVE); COCAINE SCREEN,URINE NEGATIVE (NEGATIVE); OPIATE SCREEN,URINE NEGATIVE (NEGATIVE); PHENCYCLIDINE SCREEN,URINE NEGATIVE (NEGATIVE)
[2019-08-31] MEDS ORDERED: SODIUM CHLORIDE 0.9% 1000ML 1,000 ML IV ONE ×2 (01:19→04:10)
[2019-08-31] MEDS ORDERED: CEFTRIAXONE SODIUM 1 GM ONE (01:19)
[2019-08-31] MEDS ORDERED: ACETAMINOPHEN EXTRA STRENGTH 500 MG TABLET ONE (04:10)
== END 2019-08-31 05:12 | disposition home or self-care (01) ==
LOC: EDH 00:02
DX: R45.851 Suicidal ideations (principal); N39.0 Urinary tract infection, site not specified; K74.60 Unspecified cirrhosis of liver; F18.10 Inhalant abuse, uncomplicated; R19.7 Diarrhea, unspecified; R11.2 Nausea with vomiting, unspecified; F41.9 Anxiety disorder, unspecified; F32.9 Major depressive disorder, single episode, unspecified; E11.9 Type 2 diabetes mellitus without complications; E78.00 Pure hypercholesterolemia, unspecified; Z88.6 Allergy status to analgesic agent; Z72.0 Tobacco use
CPT/HCPCS: 36415; 80053; 80305; 81001; 82140; 82150; 82550; 83690; 84484; 85025; 85610; 85730; 87088; 93005; 96361; 96374; 96375; 99285; G0480 ×2; G0481; J0696; J7030 ×2

== ENCOUNTER 2019-09-02 13:57 | Emergency (ER) | payer OTHER | END 2019-09-02 14:50 | disposition home or self-care (01) | LOC: EDH 13:57 | DX: F41.1 Generalized anxiety disorder (principal); E11.9 Type 2 diabetes mellitus without complications; I10 Essential (primary) hypertension; E78.00 Pure hypercholesterolemia, unspecified; F32.9 Major depressive disorder, single episode, unspecified; Z88.6 Allergy status to analgesic agent; Z87.442 Personal history of urinary calculi; Z72.0 Tobacco use | CPT/HCPCS: 82948; 99282 ==

== ENCOUNTER 2021-06-11 22:45 | Emergency (ER) | payer MEDICAID ==
[~2021-06-11] VITALS: Ht 180.3 cm; Wt 64.4 kg
[~2021-06-11 22:45] MED LIST changes: +ESCI-8 PO; -ESCI10TA54 PO
[2021-06-11 23:40] VITALS: BP 146/88
[2021-06-11 23:46] LABS: APPEARANCE,URINE Clear (CLEAR); BILIRUBIN,URINE Moderate (NEGATIVE); COLOR,URINE Dark Yellow (YELLOW); GLUCOSE, URINE (UA) Negative (NEGATIVE); KETONES,URINE Trace mg/dL (NEGATIVE); LEUKOCYTE ESTERASE ,URINE Small (NEGATIVE); NITRATE,URINE Positive (NEGATIVE); OCCULT BLOOD,URINE Trace (NEGATIVE); PROTEIN,URINE POS 2+ mg/dL (NEGATIVE)
[2021-06-11 23:55] LABS: BACTERIA,URINE None Seen /HPF (None Seen); RBC,URINE 0-1 /HPF (0-1)
[2021-06-11 23:56] LABS: SQUAMOUS EPITHELIAL CELL,UR Few /HPF (0-2)
[2021-06-12 03:40] LABS: BASOPHILS % (AUTO) 0.3 % (0.0-5.0); EOSINOPHILS % (AUTO) 0.6 % (0.0-8.0); HEMATOCRIT 43.8 % (42-54); LYMPHOCYTES % (AUTO) 23.6 % (21.0-51.0); MEAN CORPUSCULAR HEMOGLOBIN 31.7 pg (27.0-33.0); MEAN CORPUSCULAR HGB CONC 34.9 g/dL (32.0-36.0); MEAN CORPUSCULAR VOLUME 90.7 fL (79-99); MONOCYTES % (AUTO) 6.7 % (3.0-13.0); NEUTROPHILS % (AUTO) 68.5 % (40.0-77.0); PLATELET COUNT (AUTO) 344 K/uL (130-400); RED BLOOD CELL COUNT(AUTO) 4.83 MIL/uL (4.50-6.20); RED CELL DISTRIBUTION WIDTH 12.9 % (11.0-15.5)
[2021-06-12 03:48] LABS: CREATININE 1.6 mg/dL (0.5-1.5); POTASSIUM 3.6 mmol/L (3.5-5.1)
[2021-06-12 03:52] LABS: ALBUMIN 3.9 g/dL (3.5-5.0); BILIRUBIN,TOTAL 2.1 mg/dL (0.2-1.0)
[2021-06-12 04:00] VITALS: BP 162/104
[2021-06-12] MEDS ORDERED: 0.9%NACL 1000ML 2,000 ML IV ONE (04:00)
[2021-06-12] MEDS ORDERED: TAMSULOSIN HCL 0.4 MG CAP.ER.24H PO SCH (04:00)
[2021-06-12] MEDS ORDERED: KETOROLAC 15MG/ML VIAL (15MG/ML) IV ONE (04:00)
[2021-06-12] MEDS ORDERED: PROCHLORPERAZINE EDISYLATE 5 MG/ML 2 ML VIAL IM ONE (04:00)
[2021-06-12] MEDS ORDERED: ONDANSETRON 4MG INJ ONE (05:00)
[2021-06-12] MEDS ORDERED: CEPH500B PO (05:15)
[2021-06-12 05:16] VITALS: BP 138/89
[2021-06-12] MEDS ORDERED: CEFTRIAXONE 1G VIAL IVP ONE (05:30)
[2021-06-12] MEDS ORDERED: PROMETHAZINE HCL 25 MG/ML 1ML AMPULE IM ONE (05:30)
[2021-06-12] MEDS ORDERED: CEFTRIAXONE 1G VIAL ONE (05:55)
[2021-06-12 06:00] VITALS: BP 134/83
== END 2021-06-12 06:07 | disposition home or self-care (01) ==
LOC: EDH 22:45
DX: N39.0 Urinary tract infection, site not specified (principal); N20.0 Calculus of kidney; E11.9 Type 2 diabetes mellitus without complications; I10 Essential (primary) hypertension; Z79.1 Long term (current) use of non-steroidal anti-inflammatories (NSAID); E78.00 Pure hypercholesterolemia, unspecified; Z79.84 Long term (current) use of oral hypoglycemic drugs; Z79.899 Other long term (current) drug therapy; Z88.5 Allergy status to narcotic agent
CPT/HCPCS: 36415; 74176; 80053; 81001; 85025; 87088; 96361; 96374; 96375; J0696; J1885; J2405; J7030

== ENCOUNTER 2021-06-18 16:45 | Emergency (ER) | payer MEDICAID ==
[~2021-06-18] VITALS: Ht 177.8 cm; Wt 77.1 kg
[~2021-06-18 16:45] MED LIST changes: +CEPH500B PO
[2021-06-18 17:27] LABS: BASOPHILS % (AUTO) 0.3 % (0.0-5.0); EOSINOPHILS % (AUTO) 2.5 % (0.0-8.0); HEMATOCRIT 34.7 % (42-54); MEAN CORPUSCULAR HEMOGLOBIN 31.5 pg (27.0-33.0); MEAN CORPUSCULAR HGB CONC 35.2 g/dL (32.0-36.0); MEAN CORPUSCULAR VOLUME 89.7 fL (79-99); MONOCYTES % (AUTO) 6.5 % (3.0-13.0); NEUTROPHILS % (AUTO) 58.4 % (40.0-77.0); PLATELET COUNT (AUTO) 236 K/uL (130-400); RED BLOOD CELL COUNT(AUTO) 3.87 MIL/uL (4.50-6.20); RED CELL DISTRIBUTION WIDTH 13.1 % (11.0-15.5); WHITE BLOOD COUNT (AUTO) 6.5 K/uL (4.8-10.8)
[2021-06-18] MEDS ORDERED: LACTATED RINGERS 1000ML 1,000 ML IV ONE (17:30)
[2021-06-18] MEDS ORDERED: KETOROLAC 30MG VIAL (30MG/ML) IVP ONE (17:30)
[2021-06-18] MEDS ORDERED: DiphenhydrAMINE HCL 50 MG/ML VIAL IV ONE (17:30)
[2021-06-18] MEDS ORDERED: PROCHLORPERAZINE 10MG/2ML INJ IV ONE (17:30)
[2021-06-18 17:44] LABS: ALBUMIN 3.4 g/dL (3.5-5.0); BILIRUBIN,TOTAL 0.5 mg/dL (0.2-1.0); POTASSIUM 2.8 mmol/L (3.5-5.1); TOTAL PROTEIN, SERUM 7.7 g/dL (6.0-8.3)
[2021-06-18 18:10] LABS: APPEARANCE,URINE Clear (CLEAR); BILIRUBIN,URINE Negative (NEGATIVE); COLOR,URINE Yellow (YELLOW); GLUCOSE, URINE (UA) Negative (NEGATIVE); KETONES,URINE Negative (NEGATIVE); LEUKOCYTE ESTERASE ,URINE Trace (NEGATIVE); NITRATE,URINE Negative (NEGATIVE); OCCULT BLOOD,URINE Negative (NEGATIVE); PH,URINE 6.5 (5.0-8.0); PROTEIN,URINE POS 1+ mg/dL (NEGATIVE)
[2021-06-18 18:17] VITALS: BP 138/101
[2021-06-18] MEDS ORDERED: POTASSIUM BICARB/CIT AC 25 MEQ TABLET.EFF PO ONE (18:30)
[2021-06-18 18:32] LABS: BACTERIA,URINE Few /HPF (None Seen); CALCIUM OXALATE CRYSTALS,UR Few /LPF (None Seen); RBC,URINE None Seen /HPF (0-1); SQUAMOUS EPITHELIAL CELL,UR 0-2 /HPF (0-2)
== END 2021-06-18 19:05 | disposition left against medical advice (07) ==
LOC: EDH 16:45
DX: N20.0 Calculus of kidney (principal); K57.30 Diverticulosis of large intestine without perforation or abscess without bleeding; Z79.1 Long term (current) use of non-steroidal anti-inflammatories (NSAID); Z79.84 Long term (current) use of oral hypoglycemic drugs; Z88.5 Allergy status to narcotic agent; Z79.899 Other long term (current) drug therapy
CPT/HCPCS: 36415; 74176; 80053; 81001; 82150; 83690; 85025; 96374; 96375; 99284; J0780; J1200; J1885; J7120

== ENCOUNTER 2021-07-16 08:02 | Emergency (ER) | payer MEDICAID ==
[~2021-07-16] VITALS: Ht 180.3 cm; Wt 81.6 kg
[2021-07-16 08:10] VITALS: BP 157/100
[2021-07-16 08:47] LABS: APPEARANCE,URINE Turbid (CLEAR); BILIRUBIN,URINE Negative (NEGATIVE); COLOR,URINE Yellow (YELLOW); GLUCOSE, URINE (UA) 500 mg/dL (NEGATIVE); KETONES,URINE Negative (NEGATIVE); LEUKOCYTE ESTERASE ,URINE Small (NEGATIVE); NITRATE,URINE Negative (NEGATIVE); OCCULT BLOOD,URINE Large (NEGATIVE); PROTEIN,URINE POS 1+ mg/dL (NEGATIVE)
[2021-07-16 08:50] LABS: BASOPHILS % (AUTO) 0.4 % (0.0-5.0); EOSINOPHILS % (AUTO) 3.9 % (0.0-8.0); HEMATOCRIT 38.3 % (42-54); LYMPHOCYTES % (AUTO) 26.4 % (21.0-51.0); MEAN CORPUSCULAR HEMOGLOBIN 32.1 pg (27.0-33.0); MEAN CORPUSCULAR VOLUME 91.8 fL (79-99); MONOCYTES % (AUTO) 7.9 % (3.0-13.0); PLATELET COUNT (AUTO) 267 K/uL (130-400); RED BLOOD CELL COUNT(AUTO) 4.17 MIL/uL (4.50-6.20); RED CELL DISTRIBUTION WIDTH 14.9 % (11.0-15.5); WHITE BLOOD COUNT (AUTO) 5.7 K/uL (4.8-10.8)
[2021-07-16 08:56] LABS: BACTERIA,URINE Few /HPF (None Seen)
[2021-07-16 08:57] LABS: RBC,URINE 0-1 /HPF (0-1); SQUAMOUS EPITHELIAL CELL,UR None Seen /HPF (0-2)
[2021-07-16 09:05] LABS: ALBUMIN 3.4 g/dL (3.5-5.0); BILIRUBIN,TOTAL 0.5 mg/dL (0.2-1.0); CREATININE 1.4 mg/dL (0.5-1.5); POTASSIUM 3.2 mmol/L (3.5-5.1)
[2021-07-16] MEDS: ONDANSETRON 4MG INJ IVP SCH (09:09)
[2021-07-16] MEDS: LACTATED RINGERS 1000ML 1,000 ML IV SCH (09:09)
[2021-07-16] MEDS: KETOROLAC 30MG VIAL (30MG/ML) IVP SCH (09:09)
[2021-07-16] MEDS ORDERED: IBUP-2070 PO (09:59)
[2021-07-16] MEDS ORDERED: METH-812 PO (09:59)
[2021-07-16] MEDS: HYDROCODONE/ACETAMINOPHEN 5/325 MG TAB PO SCH (10:08)
[2021-07-16] MEDS: HYDROCODONE/ACETAMINOPHEN 5/325 MG TAB ONE (10:31)
[2021-07-16 13:23] LABS: AMPHET/METH SCREEN,URINE NEGATIVE (NEGATIVE); BARBITURATE SCREEN, URINE NEGATIVE (NEGATIVE); BENZODIAZEPINES SCREEN,URINE NEGATIVE (NEGATIVE); CANNABINOID SCREEN,URINE NEGATIVE (NEGATIVE); COCAINE SCREEN,URINE NEGATIVE (NEGATIVE); OPIATE SCREEN,URINE NEGATIVE (NEGATIVE); PHENCYCLIDINE SCREEN,URINE NEGATIVE (NEGATIVE)
== END 2021-07-16 11:16 | disposition home or self-care (01) ==
LOC: EDH 08:02
DX: N20.0 Calculus of kidney (principal); M54.41 Lumbago with sciatica, right side; E11.9 Type 2 diabetes mellitus without complications; E78.00 Pure hypercholesterolemia, unspecified; I10 Essential (primary) hypertension; Z79.1 Long term (current) use of non-steroidal anti-inflammatories (NSAID); Z79.84 Long term (current) use of oral hypoglycemic drugs; Z79.899 Other long term (current) drug therapy; Z87.442 Personal history of urinary calculi; Z88.5 Allergy status to narcotic agent
CPT/HCPCS: 36415; 74176; 80053; 80305; 81001; 85025; 93005; 96361; 96374; 96375; 99285; J1885; J2405; J7120

== ENCOUNTER 2021-08-04 08:40 | Emergency (ER) | payer MEDICAID ==
[~2021-08-04] VITALS: Ht 180.3 cm; Wt 83.9 kg
[~2021-08-04 08:40] MED LIST changes: +IBUP-2070 PO; +METH-812 PO
[2021-08-04 08:41] VITALS: BP 140/89
[2021-08-04] MEDS ORDERED: MORPHINE 4 MG SYG IVP ONE (09:00)
[2021-08-04] MEDS ORDERED: LACTATED RINGERS 1000ML 1,000 ML IV ONE (09:00)
[2021-08-04] MEDS ORDERED: ONDANSETRON 4MG INJ IVP ONE (09:00)
[2021-08-04 09:09] LABS: BASOPHILS % (AUTO) 0.3 % (0.0-5.0); EOSINOPHILS % (AUTO) 3.7 % (0.0-8.0); HEMATOCRIT 36.2 % (42-54); LYMPHOCYTES % (AUTO) 36.3 % (21.0-51.0); MEAN CORPUSCULAR HEMOGLOBIN 32.3 pg (27.0-33.0); MEAN CORPUSCULAR HGB CONC 35.6 g/dL (32.0-36.0); MEAN CORPUSCULAR VOLUME 90.7 fL (79-99); MONOCYTES % (AUTO) 5.9 % (3.0-13.0); NEUTROPHILS % (AUTO) 53.4 % (40.0-77.0); PLATELET COUNT (AUTO) 279 K/uL (130-400); RED BLOOD CELL COUNT(AUTO) 3.99 MIL/uL (4.50-6.20); RED CELL DISTRIBUTION WIDTH 13.4 % (11.0-15.5); WHITE BLOOD COUNT (AUTO) 7.8 K/uL (4.8-10.8)
[2021-08-04 09:11] LABS: APPEARANCE,URINE Turbid (CLEAR); BILIRUBIN,URINE Negative (NEGATIVE); COLOR,URINE Yellow (YELLOW); GLUCOSE, URINE (UA) Negative (NEGATIVE); KETONES,URINE Negative (NEGATIVE); LEUKOCYTE ESTERASE ,URINE Small (NEGATIVE); NITRATE,URINE Negative (NEGATIVE); OCCULT BLOOD,URINE Trace (NEGATIVE); PH,URINE 7.5 (5.0-8.0); PROTEIN,URINE POS 1+ mg/dL (NEGATIVE)
[2021-08-04 09:19] LABS: BACTERIA,URINE Many /HPF (None Seen); SQUAMOUS EPITHELIAL CELL,UR None Seen /HPF (0-2)
[2021-08-04 09:20] LABS: CREATININE 1.9 mg/dL (0.5-1.5)
[2021-08-04 09:24] LABS: ALBUMIN 3.7 g/dL (3.5-5.0); BILIRUBIN,TOTAL 0.5 mg/dL (0.2-1.0); TOTAL PROTEIN, SERUM 7.9 g/dL (6.0-8.3)
[2021-08-04] MEDS ORDERED: LIDOCAINE 5% TOPICAL PATCH TP ONE (09:30)
[2021-08-04] MEDS ORDERED: BISACODYL 10 MG SUPP.RECT RC ONE (09:30)
[2021-08-04 09:38] LABS: AMPHET/METH SCREEN,URINE NEGATIVE (NEGATIVE); BARBITURATE SCREEN, URINE NEGATIVE (NEGATIVE); BENZODIAZEPINES SCREEN,URINE NEGATIVE (NEGATIVE); CANNABINOID SCREEN,URINE NEGATIVE (NEGATIVE); COCAINE SCREEN,URINE NEGATIVE (NEGATIVE); OPIATE SCREEN,URINE NEGATIVE (NEGATIVE); PHENCYCLIDINE SCREEN,URINE NEGATIVE (NEGATIVE)
[2021-08-04] MEDS ORDERED: CEFTRIAXONE 1G VIAL IVP ONE (10:00)
[2021-08-04] MEDS ORDERED: POTASSIUM BICARB/CIT AC 25 MEQ TABLET.EFF PO ONE (10:00)
[2021-08-04] MEDS ORDERED: POTASSIUM BICARB/CIT AC 25 MEQ TABLET.EFF ONE (11:14)
[2021-08-04] MEDS ORDERED: CEFTRIAXONE 1G VIAL ONE (11:15)
[2021-08-04] MEDS ORDERED: 0.9%NACL 50ML 50 ML IV ONE (11:15)
[2021-08-04] MEDS ORDERED: MACR100 PO (12:37)
[2021-08-04] MEDS ORDERED: DOCU-116 PO (12:37)
[2021-08-04] MEDS ORDERED: IBUP-2070 PO (12:37)
== END 2021-08-04 13:00 | disposition home or self-care (01) ==
LOC: EDH 08:40
DX: N20.0 Calculus of kidney (principal); M46.1 Sacroiliitis, not elsewhere classified; N39.0 Urinary tract infection, site not specified; K59.00 Constipation, unspecified; E11.9 Type 2 diabetes mellitus without complications; E78.00 Pure hypercholesterolemia, unspecified; I10 Essential (primary) hypertension; F17.200 Nicotine dependence, unspecified, uncomplicated; Z88.5 Allergy status to narcotic agent; Z79.1 Long term (current) use of non-steroidal anti-inflammatories (NSAID); Z79.84 Long term (current) use of oral hypoglycemic drugs; Z79.899 Other long term (current) drug therapy
CPT/HCPCS: 36415; 76770; 80053; 80305; 81001; 83605; 85025; 87088; 96361; 96374; 96375; 99284; J0696; J2270; J2405